=== PATIENT | male | born 1985 | race Caucasian/White ===

== ENCOUNTER 2018-09-18 19:25 | Emergency (ER) | payer MEDICAID ==
[~2018-09-18] VITALS: Ht 172.7 cm; Wt 99.8 kg
[2018-09-18 19:32] VITALS: BP 111/64
--- NOTE | 2018-09-18 19:37 | NUR ---
PT AMBULATED TO BED 11 WITH VSS.
--- NOTE | 2018-09-18 19:47 | NUR ---
Dr. Albright evaluating patient at bedside.
--- NOTE | 2018-09-18 19:50 | NUR ---
32/M PRESENTS TO ED, C/O 02/11 L KNEE PAIN, S/P HITTING L KNEE ON A STEP UP A STAIRS 8 HRS AGO, REPORTS EXACERBATION WHILE WALKING AND FLEXION. REPORTS PAIN IS SHARP WITH MOVEMENT. L KNEE NO OBVIOUS ABNORMALITY, BRUISING OR SWELLING, +CMS. DENIES USE OF ANALGESIC. AOX4, GCS 15, RR EVEN AND UNLABORED. DENIES MED HX OR RX.
[2018-09-18 20:11] VITALS: BP 111/64
--- NOTE | 2018-09-18 20:11 | NUR ---
Patient discharged with v/s stable. Written and verbal after care instructions given and explained by Dr. Albright. Patient alert, oriented and verbalized understanding of instructions . Ambulatory with steady gait. All questions addressed prior to discharge by Dr. Albright. ID band removed. Patient advised to follow up with PMD. Rx of NAPROSYN given. Patient educated on indication of medication including possible reaction and side effects by Dr. Albright. Opportunity to ask questions provided and answered by Dr. Albright.
== END 2018-09-18 20:11 | disposition home or self-care (01) ==
LOC: MED 19:25
DX: S83.92XA Sprain of unspecified site of left knee, initial encounter (principal); W01.0XXA Fall on same level from slipping, tripping and stumbling without subsequent striking against object, initial encounter; Y93.89 Activity, other specified; Y92.89 Other specified places as the place of occurrence of the external cause; Y99.8 Other external cause status
CPT/HCPCS: 73562; 99283; Q0092